=== PATIENT | male | born 1975 | race Caucasian/White ===

== ENCOUNTER 2017-01-31 15:33 | Emergency (ER) | payer MEDICAID ==
[~2017-01-31 15:33] MED LIST: CLEOCIN HCL300 M1 PO; COMPAZINE10 M PO; CYMBALTA30 M1 PO; DITROPAN XL10 MG; LEVAQUIN750 M1 PO; LEVAQUIN750 MG PO; LYRICA75 MG PO; MORPHINE; NORCO 5-325 TA1 EACH PO; OXYCODONE; OXYCONTIN10 M1 PO; PERCOCET 5/3251 TAB PO; PHENERGAN25 MG PO; PROPRANOLOL HCL80 M3 PO; TRAMADOL HCL50 MG PO; TYLENOL ARTHRI650 MG PO; TYLENOL TA500 MG/TA1 PO; TYLENOL W/CODEI1 TAB PO; ZOFRAN ODT4 MG/UDTAB PO
[2017-01-31] MEDS ORDERED: PAMELOR10 M2 PO (16:02)
[2017-01-31 16:18] LABS: BASO % 0.1 % (0-2); EOS % 0.5 % (0-7); HGB-HEMOGLOBIN 16.9 gm/dl (13.5-17.0); IMMATURE GRANULOCYTES ABSOLUTE 0.04 tho/cmm (0-0.03); IMMATURE GRANULOCYTES PERCENT 0.5 % (0-0.3); LYMPH % 8.4 % (20-45); LYMPH ABSOLUTE COUNT 0.7 tho/cmm (0.8-4.5); MCH (MEAN CORPUSCULAR HGB) 29.8 pg (28.0-32.0); MCHC MEAN CORPUSCULAR HGB CONC 34.5 % (32.0-36.0); MCV (MEAN CELL VOLUME) 86.4 fl (82.0-96.0); MEAN PLATELET VOLUME 9.8 cmc (9.4-12.4); MONOCYTE ABSOLUTE COUNT 0.5 tho/cmm (0.0-1.2); NEUTROPHIL ABSOLUTE COUNT 7.5 tho/cmm (1.6-8.0); NEUTROPHIL-AUTOMATED 7.5 tho/cmm (1.6-8.0); NEUTROPHILS % 84.5 % (40-80); PLATELET COUNT 266 tho/cmm (150-450); RED BLOOD COUNT 5.67 mil/cmm (4.40-5.70); RED CELL DISTRIBUTION WIDTH 12.8 % (12.4-16.4); WHITE BLOOD COUNT 8.8 tho/cmm (4.0-10.0)
[2017-01-31 16:43] LABS: ALB/GLOB RATIO 0.9 (0.8-2.0); ALBUMIN 3.7 g/dl (3.5-5.0); ALKALINE PHOSPHATASE 41 U/L (33-138); ALT/SGPT 40 U/L (12-78); ANION GAP 14 mmol/L (0-20); AST/SGOT 26 U/L (10-40); BILIRUBIN,TOTAL 1.1 mg/dl (0.0-1.5); BLOOD UREA NITROGEN 14 mg/dl (6-24); CALCIUM 8.7 mg/dl (8.5-10.5); CARBON DIOXIDE-VENOUS 21 mmol/L (22-32); CHLORIDE 104 mmol/l (96-110); CREATININE 1.34 mg/dl (0.60-1.30); GLUCOSE 107 mg/dL (70-110); LIPASE 94 U/L (73-393); POTASSIUM 4.2 mmol/L (3.7-5.1); SODIUM 135 mmol/L (135-145); eGFR VALUE FOR BLACK 75 mL/Min
[2017-01-31] MEDS ORDERED: ZOFRAN ODT4 MG PO (18:26)
[2017-01-31] MEDS ORDERED: LOPERAMIDE2 M2 PO (18:26)
[2017-01-31] MEDS ORDERED: BENTYL10 M1 PO (18:27)
== END 2017-01-31 18:40 ==
LOC: EDMED 15:33
PROVIDERS: Emergency Medicine
DX: K52.9 Noninfective gastroenteritis and colitis, unspecified (principal); I10 Essential (primary) hypertension; Z88.0 Allergy status to penicillin; Z88.8 Allergy status to other drugs, medicaments and biological substances
CPT/HCPCS: J1170; J2405; J7030; Q9967